=== PATIENT | female | born 1975 | race Caucasian/White ===

== ENCOUNTER 2024-01-09 12:04 | Inpatient (IN) | payer BC ==
[2024-01-09] MEDS ORDERED: Midazolam HCl 2 mg/2 ml Vial ONE (13:16)
[2024-01-09] MEDS ORDERED: PROPOFOL 200 MG/20 ML VIAL ONE (13:39)
[2024-01-09] MEDS ORDERED: Lidocaine 1% PF 5 ML VIAL ONE (13:39)
[2024-01-09] MEDS ORDERED: Promethazine HCl 25 MG/ML VIAL ONE (14:59)
[2024-01-09] MEDS ORDERED: fentaNYL 50 mcg/mL 1 mL Vial ONE ×5 (15:06→19:08)
[2024-01-09] MEDS ORDERED: Meperidine HCl/PF 25 MG (1 mL) VIAL ONE (15:21)
[2024-01-09] MEDS ORDERED: HYDROcodone/Acetaminophen 5/325 mg Tablet PO PRN (16:30)
[2024-01-09] MEDS ORDERED: Acetaminophen 325 MG TAB PO PRN (16:30)
[2024-01-09] MEDS ORDERED: Acetaminophen 650 MG Suppository PR PRN (16:30)
[2024-01-09] MEDS ORDERED: HumaLOG 300 UNITS/3 ML VIAL SC PRN (16:38)
[2024-01-09] MEDS ORDERED: Dextrose 50% Abboject 50 ML SYRINGE SLOW IVP PRN (16:38)
[2024-01-09] MEDS ORDERED: Glucagon 1 MG/ML KIT IM PRN (16:38)
[2024-01-09] MEDS ORDERED: Dextrose 5% in Water 1,000 ML IV PRN (16:38)
[2024-01-09 16:51] LABS: #Basophils Less than 0.03 10x3/uL (0.0-0.2); %Eosinophils 0.8 % (0.0-10.0)
[2024-01-09 16:59] LABS: %Lymphocytes 24.5 % (21.0-51.0); %Neutrophils 68.5 % (42.0-75.0); Hematocrit 40.8 % (36.0-47.0); Mean Corpuscular HGB CONC 34.3 g/dL (32.0-36.0); Mean Corpuscular Hemoglobin 33.6 pg (27.0-31.0); Mean Corpuscular Volume 97.8 fL (78.0-98.0); Mean Platelet Volume 8.9 fL (7.4-10.4); Platelet Count 147 10x3/uL (130-400); RBC Distribution Width 12.3 % (11.5-14.5); Red Blood Cell (RBC) Count 4.17 mill/uL (4.20-5.40)
[2024-01-09 17:05] LABS: ALT (SGPT) 21 U/L (8-55); AST (SGOT) 20 U/L (5-34); Albumin 4.5 g/dL (3.5-5.0); Alkaline Phosphatase 77 U/L (40-110); Anion Gap 16 mmol/L (10-20); BUN (Urea Nitrogen) 17 mg/dL (7.0-18.7); Bilirubin, Total 0.4 mg/dL (0.2-1.2); Calc. Creatinine Clearance 0 mL/min (70-130); Calcium 10.3 mg/dL (7.8-10.44); Carbon Dioxide 29 mmol/L (22-29); Chloride 99 mmol/L (98-107); Estimated GFR 103; Globulin 3.1 g/dL (2.4-3.5); Glucose 84 mg/dL (70-105); Magnesium 2.8 mg/dL (1.6-2.6); Phosphorus 3.6 mg/dL (2.3-4.7); Potassium 4.2 mmol/L (3.5-5.1); Protein, Total 7.6 g/dL (6.0-8.3); Sodium 140 mmol/L (136-145)
[2024-01-09 19:30] VITALS: BMI 17.2
[2024-01-09] MEDS: HYDROcodone/Acetaminophen 5/325 mg Tablet PO PRN (20:11)
[2024-01-09] MEDS: Lidocaine 2 gm/D5W 500 ml 500 ML IVPB SCH (20:55)
[2024-01-09] MEDS: Insulin Glargine 30 UNITS/0.3 ML VIAL SC SCH (21:35)
[2024-01-09] MEDS: Gabapentin 400 MG CAP PO SCH (21:46)
[2024-01-09] MEDS: Amiodarone 450 MG, Admixture Fee 1 EACH in Dextrose 5% in Water 250 ML IVPB SCH (21:47)
[2024-01-09 22:06] LABS: Actual Bicarbonate (HCO3v) 29.9 mEq/L (22-28); Base Excess 3.7 mEq/L (-2.0 to +3.0); Calcium, Ionized (venous) 1.11 mmol/L (1.16-1.32); Chloride (VBG) 100 mmol/L (98-106); Hematocrit-VBG 39 % (36.0-47.0); Hemoglobin (Hb) 13.2 g/dL (11.7-16.0); Potassium (VBG) 4.03 mmol/L (3.70-5.30); Sodium 140 mmol/L (133-146); pH (venous) 7.377 (7.32-7.43)
[2024-01-09] MEDS: fentaNYL 50 mcg/mL 1 mL Vial SLOW IVP SCH (23:26)
[2024-01-09 23:29] LABS: Amphetamine Detected (NotDetected); Barbiturates Screen Not Detected (NotDetected); Benzodiazepine Screen Not Detected (NotDetected); Cocaine Metabolite Screen Not Detected (NotDetected); Methadone Not Detected (NotDetected); Methamphetamine Not Detected (NotDetected); Opiate Screen Detected (NotDetected); Oxycodone Screen Not Detected (NotDetected); Phencyclidine (PCP) Not Detected (NotDetected); THC/Cannabinoid Screen Not Detected (NotDetected); Tricyclic Screen Not Detected (NotDetected)
[2024-01-10] MEDS: Lorazepam 1 MG TAB PO SCH (00:06)
[2024-01-10] MEDS: Morphine 2 MG/ML VIAL SLOW IVP PRN (00:11)
[2024-01-10 00:37] VITALS: TEMP 98.3
[2024-01-10] MEDS: Sodium Chloride 0.9% 500 ML IV SCH (02:50)
[2024-01-10] MEDS ORDERED: Enoxaparin 40 MG (0.4 mL) SYRINGE SC SCH (09:00)
== END 2024-01-10 04:16 | disposition left against medical advice (07) | DRG 309 ==
LOC: MRI 12:04 → SUATTDRO 12:04 → EDSTATUS 13:00 → IMCU/EMU 16:33 → CCU 20:21
PROVIDERS: ADMIT Family Medicine; ATTEND Family Medicine
DX: I47.21 Torsades de pointes (principal); D84.9 Immunodeficiency, unspecified; I47.20 Ventricular tachycardia, unspecified; S09.90XA Unspecified injury of head, initial encounter; M54.9 Dorsalgia, unspecified; M54.2 Cervicalgia; G89.29 Other chronic pain; E10.9 Type 1 diabetes mellitus without complications; F90.9 Attention-deficit hyperactivity disorder, unspecified type; Z53.29 Procedure and treatment not carried out because of patient's decision for other reasons; Z88.0 Allergy status to penicillin; Z91.030 Bee allergy status; Z91.018 Allergy to other foods; Z88.8 Allergy status to other drugs, medicaments and biological substances; Z79.899 Other long term (current) drug therapy; Z79.4 Long term (current) use of insulin; Z78.0 Asymptomatic menopausal state
CPT/HCPCS: 36415; 36416; 70551; 72141; 72148; 80053; 80306; 82805; 83735; 84100; 85025; 93005; 93010; 93306; J0282; J1650; J2001; J2175; J2250; J2272; J2550; J2704; J3010; J7030; J7070